=== PATIENT | female | born 1990 | race Caucasian/White ===

== ENCOUNTER 2021-11-15 14:54 | Emergency (ER) | payer SELFPAY ==
[2021-11-15] MEDS ORDERED: ALPRAZolam 0.5 MG TAB ONE (18:15)
== END 2021-11-15 18:24 | disposition home or self-care (01) ==
LOC: CSHERS 14:54
DX: F43.0 Acute stress reaction (principal); F41.9 Anxiety disorder, unspecified
CPT/HCPCS: 99283